=== PATIENT | female | born 1985 | race Caucasian/White ===

== ENCOUNTER 2018-09-22 22:10 | Inpatient (IN) | payer OTHER ==
[~2018-09-22] VITALS: Ht 162.6 cm; Wt 87.1 kg
[~2018-09-22 22:10] MED LIST: FERR256T; PREN-155 PO
[2018-09-22 22:30] VITALS: BP 131/84
[2018-09-22] MEDS ORDERED: RINGERS SOLUTION,LACTATED 1,000 ML IV PRN (23:16)
[2018-09-22] MEDS ORDERED: METOCLOPRAMIDE HCL 5 MG/ML 2 ML VIAL IVP PRN (23:30)
[2018-09-22] MEDS ORDERED: CITRIC ACID/SODIUM CITRATE 30 ML SOLUTION UDCUP PO PRN (23:30)
[2018-09-22] MEDS ORDERED: LIDOCAINE/PF 1% 30 ML VIAL INJ PRN (23:30)
[2018-09-23] MEDS: RINGERS SOLUTION,LACTATED 1,000 ML IV SCH ×4 (00:28→14:38)
[2018-09-23 00:37] LABS: BASOPHILS % (AUTO) 0.5 % (0.0-2.0); EOSINOPHILS % (AUTO) 0.3 % (1.0-6.0); HEMATOCRIT 34.4 % (36-46); LYMPHOCYTES # (AUTO) 0.9 K/uL (1.0-4.8); LYMPHOCYTES % (AUTO) 10.3 % (22.0-44.0); MEAN CORPUSCULAR HEMOGLOBIN 31.7 pg (26.0-34.0); MEAN CORPUSCULAR HGB CONC 34.9 G/dL (31.0-37.0); MEAN CORPUSCULAR VOLUME 91 fL (80-100); MONOCYTES # (AUTO) 0.6 K/uL (0.1-1.0); NEUTROPHILS # (AUTO) 7.4 K/uL (1.8-7.7); NEUTROPHILS % (AUTO) 81.9 % (40.0-70.0); PLATELET COUNT (AUTO)-OB 192 K/uL (150-450); RED BLOOD CELL COUNT(AUTO) 3.78 MIL/uL (4.00-5.20); RED CELL DISTRIBUTION WIDTH 12.5 % (11.5-14.5)
[2018-09-23] MEDS: FentaNYL CITRATE-PF 100 MCG/2 ML VIAL IVP PRN ×2 (07:54→09:41)
[2018-09-23] MEDS ORDERED: ROPIVACAINE HCL/PF 0.2% 100 ML ED ONE (11:20)
[2018-09-23] MEDS ORDERED: ONDANSETRON HCL 4 MG/2 ML VIAL IVP PRN (11:45)
[2018-09-23] MEDS ORDERED: ROPIVACAINE HCL/PF 0.2% 100 ML ED PRN (11:45)
[2018-09-23] MEDS ORDERED: DiphenhydrAMINE HCL 50 MG/ML VIAL IVP PRN (11:45)
[2018-09-23] MEDS: OXYTOCIN 30 UNITS/LACT RINGERS 500 ML IV PRN ×2 (12:17→14:39)
[2018-09-23] MEDS ORDERED: CeFAZolin 2 GM/DEXTROSE 50 ML IV ONE ×2 (14:19→14:30)
[2018-09-23] MEDS ORDERED: LANOLIN 7 GM OINTMENT TP PRN ×2 (14:30→15:00)
[2018-09-23] MEDS ORDERED: GLYCERIN/WITCH HAZEL LEAF 40 PADS JAR TP PRN ×2 (14:30→15:00)
[2018-09-23] MEDS ORDERED: ACETAMINOPHEN/CODEINE 300-30 MG TABLET PO PRN ×4 (14:30→15:00)
[2018-09-23] MEDS ORDERED: BENZOCAINE 20%/MENTHOL 56 GM SPRAY CANISTER TP PRN ×2 (14:30→15:00)
[2018-09-23] MEDS ORDERED: METHYLERGONOVINE MALEATE 0.2 MG TABLET PO SCH (16:00)
[2018-09-23] MEDS ORDERED: IBUPROFEN 800 MG TABLET PO SCH (17:00)
[2018-09-23] MEDS: IBUPROFEN 800 MG TABLET PO SCH (18:01)
[2018-09-23 20:30] VITALS: BP 113/62
[2018-09-23] MEDS ORDERED: MAGNESIUM HYDROXIDE SUSPENSION 30 ML UDCUP PO SCH ×2 (21:00)
[2018-09-24] MEDS: IBUPROFEN 800 MG TABLET PO SCH ×3 (00:43→12:05)
[2018-09-24] MEDS ORDERED: IBUP-2070 PO (15:17)
== END 2018-09-24 15:20 | disposition home or self-care (01) | DRG 807 ==
LOC: 4S 22:10 → OBSVTOIN 22:10 → 4S 22:11 → UNDOADMOB 22:11
PROVIDERS: ADMIT Obstetrics & Gynecology; ATTEND Obstetrics & Gynecology
PROC: 10D07Z6 Extraction of Products of Conception, Vacuum, Via Natural or Artificial Opening (ICD-10-PCS; principal; 2018-09-23)
PROC: 0KQM0ZZ Repair Perineum Muscle, Open Approach (ICD-10-PCS; 2018-09-23)
PROC: 3E0R3BZ Introduction of Anesthetic Agent into Spinal Canal, Percutaneous Approach (ICD-10-PCS; 2018-09-23)
PROC: 00HU33Z Insertion of Infusion Device into Spinal Canal, Percutaneous Approach (ICD-10-PCS; 2018-09-23)
DX: O70.1 Second degree perineal laceration during delivery (principal); Z37.0 Single live birth; Z3A.37 37 weeks gestation of pregnancy
CPT/HCPCS: 86850; 86900; 86901; 90686; J0690; J2590; J2795; J3010; J7120